=== PATIENT | female | born 1965 | race Native Hawaiian/Other Pacific Islander ===

== ENCOUNTER 2022-04-18 19:05 | Emergency (ER) | payer OTHER ==
[~2022-04-18] VITALS: Ht 165.1 cm; Wt 123.8 kg
[2022-04-18 19:05] VITALS: BP 105/40; TEMP 98.1
[2022-04-18 20:08] LABS: PLATELET COUNT 380 K/uL (152-353)
[2022-04-18 20:12] LABS: POTASSIUM 4.3 mmol/L (3.6-5.2)
[2022-04-19] MEDS ORDERED: ALLO100T22 PO (01:52)
[2022-04-19] MEDS ORDERED: DOCU100C10 PO (01:53)
[2022-04-19] MEDS ORDERED: MULTIVITAMIN1 TA1 PO (01:54)
[2022-04-19] MEDS ORDERED: FENOFIBRATE160 MG PO (01:54)
[2022-04-19] MEDS ORDERED: FE TABS325 MG PO (01:55)
[2022-04-19] MEDS ORDERED: FLONASE AL50 MCG/ACT NAS (01:55)
[2022-04-19] MEDS ORDERED: GNP CLEARLAX17 GM PO (04:13)
[2022-04-19] MEDS ORDERED: FURO40TA93 PO (04:13)
[2022-04-19] MEDS ORDERED: LIPITOR20 MG PO (04:14)
[2022-04-19] MEDS ORDERED: LISI20TA11 PO (04:14)
[2022-04-19] MEDS ORDERED: GNP MELATONIN MA5 MG PO (04:15)
[2022-04-19] MEDS ORDERED: PANTOPRAZOLE 40MG TA PO (04:15)
[2022-04-19] MEDS ORDERED: POTASSIUM CHLO20 ME1 PO (04:16)
[2022-04-19] MEDS ORDERED: SEROQUEL300 MG PO (04:16)
[2022-04-19] MEDS ORDERED: LEVO0.1T6 PO (04:16)
[2022-04-19] MEDS ORDERED: SERT50TA PO (04:17)
[2022-04-19] MEDS ORDERED: ELIQUIS5 MG PO (04:17)
[2022-04-19] MEDS ORDERED: PROSOURCE TF FR PO (04:18)
[2022-04-19] MEDS ORDERED: SEROQUEL50 MG PO (04:19)
[2022-04-19] MEDS ORDERED: ARTHRITIS PAIN RE1 % EX (04:19)
[2022-04-19] MEDS ORDERED: NEURONTIN 100M100 MG PO (04:20)
[2022-04-19] MEDS ORDERED: APAP325 MG PO (04:21)
[2022-04-19] MEDS ORDERED: METHOCARBAMOL PO (04:23)
[2022-04-19] MEDS ORDERED: MYLANTA MAXIMUM1 SUS PO (04:24)
[2022-04-19] MEDS ORDERED: TRAMADOL HYDROC50 MG PO (04:24)
== END 2022-04-18 21:34 | disposition still patient (30) ==
LOC: ED 19:05
PROVIDERS: Emergency Medicine
DX: F20.89 Other schizophrenia (principal); R45.1 Restlessness and agitation; L03.116 Cellulitis of left lower limb; L03.115 Cellulitis of right lower limb; Z11.52 Encounter for screening for COVID-19; Z00.8 Encounter for other general examination
CPT/HCPCS: 36415; 80053; 81002; 85027; 87635; 93005; 99283; U0003